=== PATIENT | male | born 1980 | race Caucasian/White ===

== ENCOUNTER → 2016-10-01 | Outpatient (CLI) | payer OTHER ==
[2016-10-01 09:41] LABS: CHLORIDE,CL 106 mmol/L (98-110); SODIUM,NA 139 mmol/L (136-146)
== END ==
LOC: MW.CHIM 08:39
PROVIDERS: ATTEND Internal Medicine
DX: E66.9 Obesity, unspecified (principal)
CPT/HCPCS: 36415; 80053; 80061; 85025

== ENCOUNTER 2019-01-26 09:45 | Emergency (ER) | payer OTHER ==
[2019-01-26 10:02] VITALS: BP 117/86
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
--- NOTE | 2019-01-26 10:32 | CR ---
EXAMINATION: Left foot HISTORY: Injury COMPARISON: None TECHNIQUE: 2 views FINDINGS/IMPRESSION: There is no acute osseous abnormality, dislocation, or fracture. Bone mineralization and joint spaces are preserved. Mild soft tissue swelling noted along the dorsal aspect of the foot without visualize foreign body.
== END 2019-01-26 11:08 | disposition home or self-care (01) ==
LOC: MW.ED 09:45
DX: S99.922A Unspecified injury of left foot, initial encounter (principal); I25.10 Atherosclerotic heart disease of native coronary artery without angina pectoris; E78.00 Pure hypercholesterolemia, unspecified; I10 Essential (primary) hypertension; W20.8XXA Other cause of strike by thrown, projected or falling object, initial encounter
CPT/HCPCS: 73620-26-LT; 73620-LT; 99283-25